=== PATIENT | male | born 1985 | race African-American/Black ===

== ENCOUNTER 2019-08-26 09:59 | Emergency (ER) | payer MEDICAID ==
[~2019-08-26] VITALS: Ht 170.2 cm; Wt 73.0 kg
[2019-08-26 10:03] VITALS: BP 146/100
== END 2019-08-26 13:45 | disposition home or self-care (01) ==
LOC: ER 09:59
DX: S20.311A Abrasion of right front wall of thorax, initial encounter (principal); M79.18 Myalgia, other site; M79.644 Pain in right finger(s); F20.9 Schizophrenia, unspecified; F12.10 Cannabis abuse, uncomplicated; N28.9 Disorder of kidney and ureter, unspecified; J45.909 Unspecified asthma, uncomplicated; X99.1XXA Assault by knife, initial encounter; Y93.89 Activity, other specified; Y92.89 Other specified places as the place of occurrence of the external cause
CPT/HCPCS: 71045; 73120; 99283